=== PATIENT | female | born 1955 | race Caucasian/White ===

== ENCOUNTER 2018-01-14 10:06 | Inpatient (IN) | payer BC ==
--- NOTE | 2018-01-14 10:12 | EDPHY ---
H & P Time Seen by Provider: 01/14/18 10:09 HPI/ROS: CHIEF COMPLAINT: Left hip pain post mechanical fall HISTORY OF PRESENT ILLNESS: 62-year-old female history of type 2 diabetes, arrives via ambulance, not a trauma activation, complaining of acute left hip pain after a mechanical fall. She describes taking a dog for a walk, the dog pulled suddenly causing her to fall onto her left side. Isolated complaints of left hip injury. No head injury. No alcohol or drug use. This was not a syncopal episode. No headache. No nausea or vomiting. No chest pain. No back pain. No abdominal pain. No dyspnea. Last oral intake dinner last night PRIMARY CARE PROVIDER: Uyen Jay NP REVIEW OF SYSTEMS: 10 systems reviewed and negative with the exception of the elements mentioned in the history of present illness PAST MEDICAL/SURGICAL HISTORY: Type 2 diabetes. no anticoagulant use, no relevant medical/surgical history SOCIAL HISTORY: denies alcohol use at time of incident PHYSICAL EXAM 1) GENERAL: Well-developed, well-nourished, alert and oriented. Appears uncomfortable when she is asked to move the left hip. She prefers laying in a right lateral, position Answering questions appropriately. 2) HEAD: Normocephalic, atraumatic 3) HEENT: Pupils equal, round, reactive to light bilaterally. Negative Horners. Nasopharynx, oropharynx, clear. No deformity or angulation of nose. No septal hematoma. No rhinorrhea. No oral trauma. Ears bilaterally with normal tympanic membranes. No hemotympanum. No fluid or blood in the external auditory canal. No raccoon eyes. No Marques sign. Teeth are normally aligned with no gross malocclusion, TMJ bilaterally nontender, facial bones nontender including the zygomatic arch, maxilla mandible. 4) NECK: No cervical collar is on. Posterior cervical spine is nontender, no stepoff, no effusion. Full range of motion which does not elicit any midline cervical spine pain, no posterior midline tenderness, no step-off. 5) LUNGS: Clear to auscultation bilaterally, no wheezes, no rhonchi, no retractions. No obvious signs of trauma. No chest wall pain. No flaring, no grunting. Moving symmetrically. No crepitus. 6) HEART: Regular rate and rhythm, 7) ABDOMEN: No guarding, no rebound, no focal tenderness, no peritoneal signs, no signs of trauma, no ecchymosis 8) MUSCULOSKELETAL: Left lower extremity: Tender to palpation proximal and mid thigh. Soft compartments. Hip and inguinal region nontender. Unable to assess leg length discrepancy this patient's keeping her hip flexed unwilling or unable to extend. Knee nontender. Distal DP PT pulses present and brisk. Otherwise, Moving all extremities, no focal areas of tenderness, no obvious trauma. 9) BACK: No midline vertebral tenderness, no fluctuance, no step-off, no obvious trauma, no visual or palpable abnormality. 10) SKIN: No laceration. No abrasion DIFFERENTIAL DIAGNOSIS: In no particular order including but not limited to fracture, sprain, strain, dislocation Constitutional: Initial Vital Signs Temperature (C) 37.2 C 01/14/18 10:09 O2 Delivery Mode Room Air Allergies/Adverse Reactions: No Known Allergies Allergy (Unverified 01/14/18 10:14) Home Medications: Medication Instructions Recorded Aspirin [Aspirin 81mg (*)] 81 mg PO DAILY 01/14/18 Atorvastatin Calcium [Lipitor 40 40 mg PO DAILY 01/14/18 mg (*)] Cholecalciferol Vit D3 [Vitamin D3 1,000 units PO BID 01/14/18 (*)] Lisinopril [Lisinopril] 10 mg PO DAILY 01/14/18 [place]-3 Fatty Acids [Fish Oil 1000 1,000 mg PO BID 01/14/18 mg (*)] Vitamin B Complex [Vitamin B 1 each PO DAILY 01/14/18 Complex (OTC)] glyBURIDE [Glyburide] 2.5 mg PO DAILY 01/14/18 metFORMIN HCL [Metformin HCl] 1,000 mg PO BID 01/14/18 Medical Decision Making - Diagnostics Imaging Results: Imaging Impressions Chest X-Ray 01/14/18 10:15 Impression: Negative preoperative portable chest. Femur X-Ray 01/14/18 10:15 Impression: 1. Nondisplaced obliquely oriented intertrochanteric proximal left foraminal fracture with subtrochanteric extension. Images reviewed myself ED Course/Re-evaluation: 11:19 a.m.: Re-evaluation, discussed her imaging results showing a nondisplaced intertrochanteric fracture with extension into the subtrochanteric region. She remains NPO since dinner last night. Pain is controlled. Will consult with orthopedics plan on admission. I saw this patient independently based on established practice protocols. Care of patient under supervision of secondary supervising physician Dr Garcia with whom I discussed case. 11:40 a.m.: Consultation with on-call orthopedics Dr. Kvng Gates has reviewed the patient's images. Patient remains NPO since last evening. He requests she remain NPO and he will plan operative repair later today. Admit to hospitalist. 12:08 p.m.: Consultation with hospitalist Lisa, admit to Dr. Moreno - Data Points Laboratory Results: Laboratory Results 01/14/18 10:10 01/14/18 10:10 01/14/18 01/14/18 01/14/18 10:10 10:10 10:10 WBC 5.37 10^3/uL 10^3/uL (3.80-9.50) RBC 4.22 10^6/uL 10^6/uL (4.18-5.33) Hgb 14.2 g/dL g/dL (12.6-16.3) Hct 41.3 % % (38.0-47.0) MCV 97.9 fL fL (81.5-99.8) MCH 33.6 pg pg (27.9-34.1) MCHC 34.4 g/dL g/dL (32.4-36.7) RDW 12.8 % % (11.5-15.2) Plt Count 226 10^3/uL 10^3/uL (150-400) MPV 10.0 fL fL (8.7-11.7) Neut % (Auto) 53.2 % % (39.3-74.2) Lymph % (Auto) 36.1 % % (15.0-45.0) [place] % (Auto) 7.1 % % (4.5-13.0) Eos % (Auto) 2.8 % % (0.6-7.6) Baso % (Auto) 0.4 % % (0.3-1.7) Nucleat RBC Rel Count 0.0 % % (0.0-0.2) Absolute Neuts (auto) 2.86 10^3/uL 10^3/uL (1.70-6.50) Absolute Lymphs (auto) 1.94 10^3/uL 10^3/uL (1.00-3.00) Absolute Monos (auto) 0.38 10^3/uL 10^3/uL (0.30-0.80) Absolute Eos (auto) 0.15 10^3/uL 10^3/uL (0.03-0.40) Absolute Basos (auto) 0.02 10^3/uL 10^3/uL (0.02-0.10) Absolute Nucleated RBC 0.00 10^3/uL 10^3/uL (0-0.01) Immature Gran % 0.4 % % (0.0-1.1) Immature Gran # 0.02 10^3/uL 10^3/uL (0.00-0.10) PT 12.7 SEC SEC (12.0-15.0) INR 0.93 (0.83-1.16) APTT 25.6 SEC SEC (23.0-38.0) Sodium 138 mEq/L mEq/L (135-145) Potassium 5.0 mEq/L mEq/L (3.3-5.0) Chloride 99 mEq/L mEq/L (97-110) Carbon Dioxide 27 mEq/l mEq/l (22-31) Anion Gap 12 mEq/L mEq/L (8-16) BUN 14 mg/dL mg/dL (7-23) Creatinine 0.6 mg/dL mg/dL (0.6-1.0) Estimated GFR > 60 Glucose 197 mg/dL H mg/dL (70-100) Calcium 10.0 mg/dL mg/dL (8.5-10.4) Medications Given: Discontinued Medications Fentanyl (Sublimaze) 50 mcg IVP EDNOW ONE Stop: 01/14/18 10:33 Last Admin: 01/14/18 11:13 Dose: 50 mcg Fentanyl (Sublimaze) 50 mcg IVP EDNOW ONE Stop: 01/14/18 12:27 Last Admin: 01/14/18 12:59 Dose: 50 mcg Departure - Departure Disposition: [facility] Inpatient Acute Clinical Impression: Hip fracture, left Qualifiers: Encounter type: initial encounter Fracture type: closed Qualified Code(s): S72.002A - Fracture of unspecified part of neck of left femur, initial encounter for closed fracture Condition: Fair
[2018-01-14] MEDS ORDERED: fentaNYL 100 MCG/2 ML INJ ONE ×2 (10:31→19:05)
[2018-01-14] MEDS ORDERED: fentaNYL 100 MCG/2 ML INJ IVP ONE ×2 (10:32→12:26)
[2018-01-14 11:28] LABS: PLATELET COUNT 226 10^3/uL (150-400)
[2018-01-14 11:38] LABS: INR 0.93 (0.83-1.16); PROTIME(PATIENT) 12.7 SEC (12.0-15.0)
[2018-01-14] MEDS ORDERED: HYDROmorphONE/DILAUDID 1 MG/ML INJ IVP PRN (13:19)
[2018-01-14] MEDS ORDERED: LACTULOSE 20 GM/30 ML UDCUP PO PRN (13:20)
[2018-01-14] MEDS ORDERED: BISACODYL 10 MG SUPP PR PRN (13:20)
[2018-01-14] MEDS ORDERED: MAGNESIUM HYDROXIDE 30 ML UDCUP PO PRN (13:20)
[2018-01-14] MEDS ORDERED: POLYETHYLENE GLYCOL 3350 17 GM PKT PO PRN (13:20)
[2018-01-14] MEDS ORDERED: D5W 1/2 NS 1,000 ML IV SCH (13:30)
[2018-01-14] MEDS ORDERED: ONDANSETRON DISINTEGRATING 4 MG TAB PO PRN (13:33)
[2018-01-14] MEDS ORDERED: ONDANSETRON 4 MG/2 ML VIAL IVP PRN ×2 (13:33→17:35)
[2018-01-14] MEDS ORDERED: HYDROmorphone HCL 0.5 MG/0.5 ML SYR IVP PRN (14:00)
[2018-01-14] MEDS: HYDROmorphONE/DILAUDID 2 MG TAB PO PRN (14:04)
[2018-01-14] MEDS ORDERED: ceFAZolin 2 GM/DEXTROSE 100 ML IV ONE (14:29)
--- NOTE | 2018-01-14 14:44 | GHP ---
DATE OF ADMISSION: 01/14/2018 REASON FOR CONSULTATION: Left intertrochanteric fracture. HISTORY OF PRESENT ILLNESS: The patient is a 62-year-old female who was walking her dog earlier this morning when the dog got tangled up with her, she fell, hitting the ground sustaining intertrochante zackary fracture. She was brought to the emergency department. X-rays were obtained. I was consulted. She has been admitted to the hospitalist and our plan is for surgical fixation of the fracture later this afternoon. PRIOR MEDICAL HISTORY: Type 2 diabetes. SURGICAL HISTORY: None. MEDICATIONS: 1. Metformin. 2. Glyburide. 3. Vitamin B. 4. Lisinopril. 5. [place]-3. 6. Aspirin 81 mg. 7. Lipitor. 8. Vitamin D3. ALLERGIES: No known drug allergies. SOCIAL HISTORY: She is . [place]. Does not smoke. Occasional alcohol use. REVIEW OF SYSTEMS: No loss of consciousness. No shortness of breath or chest pain. Otherwise, revi ew of systems unremarkable. PHYSICAL EXAM: GENERAL: Healthy-appearing 62-year-old female, she is alert and oriented x3. Answer s questions appropriately. She is in mild distress from the left hip pain. VITAL SIGNS: Blood pres sure is 162/88. Heart rate is 91, respiratory rate 16. Temperature is 36.6, oxygen saturations 97% on room air. HEENT: Normocephalic, atraumatic. Extraocular muscles intact. NECK: Supple. There is no lymphadenopathy. No JVD. CHEST: Clear to auscultation. CARDIOVASCULAR: Regular rate and rh ythm. ABDOMEN: Soft, nontender, nondistended. EXTREMITIES: Left leg is short and externally rotat ed. Thigh compartment is soft. She has 1+ dorsalis pedis, posterior tibial pulses. She does have s ome underlying neuropathy on the plantar aspect of her foot, but it is at her baseline currently. Se nsation on the dorsum of her foot is intact. X-RAYS: Hip, femur taken today in the emergency department are reviewed. They show a nondisplaced, obliquely oriented intertrochanteric fracture. It does extend into the subtrochanteric region. Join t space is well maintained. No significant underlying osteoarthritis. ASSESSMENT: Intertrochanteric fracture left hip. PLAN: We will proceed with a long intramedullary nail fixation later this afternoon. She will be on anticoagulants for 21 days postop. We also talked about the risks of infection. She will be on Anc ef perioperatively. Consent was signed. We will keep her n.p.o. /[id number]/MODL
--- NOTE | 2018-01-14 15:14 | PDMN ---
Medical Necessity Medical necessity: Pt meets inpt criteria per MD order and Musculoskeletal Surgery or Procedure GRG. 62 y/o admitted w/intertrochanteric fracture left hip requiring surgical intervention, intermedullary nail fixation today. Anticipate> 2MN for hip surgery and post-op recovery/care.
[2018-01-14] MEDS ORDERED: PROPOFOL 200 MG/20 ML VIAL ONE (16:34)
[2018-01-14] MEDS ORDERED: BUPIVACAINE 0.5% 30 ML SDV ONE (16:34)
[2018-01-14] MEDS ORDERED: RANITIDINE 50 MG/2 ML VIAL ONE (16:36)
[2018-01-14] MEDS ORDERED: ROCURONIUM 100 MG/10 ML VIAL ONE (16:36)
[2018-01-14] MEDS ORDERED: METOCLOPRAMIDE 10 MG/2 ML VIAL ONE (16:36)
[2018-01-14] MEDS ORDERED: LIDOCAINE 2% 100 MG/5 ML SYR ONE (16:36)
[2018-01-14] MEDS ORDERED: MIDAZOLAM 2 MG/2 ML VIAL ONE (16:40)
--- NOTE | 2018-01-14 16:50 | PDGENHP ---
History and Physical - Chief Complaint Acute hip pain - History of Present Illness Primary care provider: Uyen Jay NP HPI: 62-year-old female presents with acute hip pain located in her left hip, characterized as severe, with associated preceding mechanical fall, secondary to losing her balance while she was walking her dog. She denies any precipitating chest pain dizziness or shortness of breath. She denies any high head trauma. She reports experiencing the pain immediately after she landed on her left hip and the duration was persistent thereafter. The onset of this fall was on the morning of presentation. Her pain was somewhat alleviated by fentanyl received in the emergency department as well as immobilization. Prior to her acute episode, the patient had otherwise been feeling well and had had no complaints. She reports that her exercise tolerance is approximately 2.8 miles per day, and she has not experienced any recent chest pain reduction exercise tolerance. History Information - Allergies/Home Medication List Allergies/Adverse Reactions: No Known Allergies Allergy (Unverified 01/14/18 10:14) Home Medications: Aspirin [Aspirin 81mg (*)] 81 mg PO DAILY 01/14/18 [Last Taken 01/13/18] Atorvastatin Calcium [Lipitor 40 mg (*)] 40 mg PO DAILY 01/14/18 [Last Taken ] Cholecalciferol Vit D3 [Vitamin D3 (*)] 1,000 units PO BID 01/14/18 [Last Taken 01/13/18] Lisinopril [Lisinopril] 10 mg PO DAILY 01/14/18 [Last Taken 01/13/18] [place]-3 Fatty Acids [Fish Oil 1000 mg (*)] 1,000 mg PO BID 01/14/18 [Last Taken 01/13/18] Vitamin B Complex [Vitamin B Complex (OTC)] 1 each PO DAILY 01/14/18 [Last Taken 01/13/18] glyBURIDE [Glyburide] 2.5 mg PO DAILY 01/14/18 [Last Taken 01/13/18] metFORMIN HCL [Metformin HCl] 1,000 mg PO BID 01/14/18 [Last Taken 01/13/18] I have personally reviewed and updated: family history, medical history, social history, surgical history - Past Medical History diabetes type 2, hypertension, hyperlipidemia - Surgical History Additional surgical history: Ankle surgery in 1997 - Family History Additional family history: No family history of venous thromboembolism, father had CVA in his 80s - Social History Smoking Status: Never smoked Alcohol Use: Other (Patient drinks a moderate amount of alcohol on the weekends , approximately 1 bottle per night, she has experienced mild alcohol withdrawal in the past but has not had any alcohol consumption in approximately 5 days) Drug Use: None Additional social history: Independent ADLs comma 2.8 ambulatory miles per day without any chest pain or shortness of breath Review of Systems Review of Systems: ROS: 10pt was reviewed & negative except for what was stated in HPI & below Muscolosketal: Reports: other (Pain left hip, fall) Physical Exam Physical Exam: Temp Pulse Resp BP Pulse Ox 37.3 C 105 H 18 150/84 H 95 01/14/18 16:13 01/14/18 16:13 01/14/18 16:13 01/14/18 16:13 01/14/18 16:13 Constitutional: no apparent distress, appears nourished, not in pain, uncomfortable Eyes: PERRL, anicteric sclera, EOMI Ears, Nose, Mouth, Throat: moist mucous membranes, hearing normal, ears appear normal, no oral mucosal ulcers Cardiovascular: regular rate and rhythym, no murmur, rub, or gallop, No edema Respiratory: no respiratory distress, no rales or rhonchi, clear to auscultation Gastrointestinal: normoactive bowel sounds, soft, non-tender abdomen, no palpable masses Genitourinary: other (Mild bladder fullness but no tenderness) Musculoskeletal: other (Left lower extremity is shortened and externally rotated , flexed at the left knee) Neurologic: No weakness (Motor strength 5/5 left toes, right lower extremity) Psychiatric: interacting appropriately, not anxious, not encephalopathic, thought process linear Lab Data & Imaging Review 01/14/18 10:10 01/14/18 10:10 WBC 5.37 10^3/uL (3.80-9.50) 01/14/18 10:10 RBC 4.22 10^6/uL (4.18-5.33) 01/14/18 10:10 Hgb 14.2 g/dL (12.6-16.3) 01/14/18 10:10 Hct 41.3 % (38.0-47.0) 01/14/18 10:10 MCV 97.9 fL (81.5-99.8) 01/14/18 10:10 MCH 33.6 pg (27.9-34.1) 01/14/18 10:10 MCHC 34.4 g/dL (32.4-36.7) 01/14/18 10:10 RDW 12.8 % (11.5-15.2) 01/14/18 10:10 Plt Count 226 10^3/uL (150-400) 01/14/18 10:10 MPV 10.0 fL (8.7-11.7) 01/14/18 10:10 Neut % (Auto) 53.2 % (39.3-74.2) 01/14/18 10:10 Lymph % (Auto) 36.1 % (15.0-45.0) 01/14/18 10:10 [place] % (Auto) 7.1 % (4.5-13.0) 01/14/18 10:10 Eos % (Auto) 2.8 % (0.6-7.6) 01/14/18 10:10 Baso % (Auto) 0.4 % (0.3-1.7) 01/14/18 10:10 Nucleat RBC Rel Count 0.0 % (0.0-0.2) 01/14/18 10:10 Absolute Neuts (auto) 2.86 10^3/uL (1.70-6.50) 01/14/18 10:10 Absolute Lymphs (auto) 1.94 10^3/uL (1.00-3.00) 01/14/18 10:10 Absolute Monos (auto) 0.38 10^3/uL (0.30-0.80) 01/14/18 10:10 Absolute Eos (auto) 0.15 10^3/uL (0.03-0.40) 01/14/18 10:10 Absolute Basos (auto) 0.02 10^3/uL (0.02-0.10) 01/14/18 10:10 Absolute Nucleated RBC 0.00 10^3/uL (0-0.01) 01/14/18 10:10 Immature Gran % 0.4 % (0.0-1.1) 01/14/18 10:10 Immature Gran # 0.02 10^3/uL (0.00-0.10) 01/14/18 10:10 PT 12.7 SEC (12.0-15.0) 01/14/18 10:10 INR 0.93 (0.83-1.16) 01/14/18 10:10 APTT 25.6 SEC (23.0-38.0) 01/14/18 10:10 Sodium 138 mEq/L (135-145) 01/14/18 10:10 Potassium 5.0 mEq/L (3.3-5.0) 01/14/18 10:10 Chloride 99 mEq/L (97-110) 01/14/18 10:10 Carbon Dioxide 27 mEq/l (22-31) 01/14/18 10:10 Anion Gap 12 mEq/L (8-16) 01/14/18 10:10 BUN 14 mg/dL (7-23) 01/14/18 10:10 Creatinine 0.6 mg/dL (0.6-1.0) 01/14/18 10:10 Estimated GFR > 60 01/14/18 10:10 Glucose 197 mg/dL (70-100) H 01/14/18 10:10 POC Glucose 219 mg/dL (70-100) H 01/14/18 15:55 Calcium 10.0 mg/dL (8.5-10.4) 01/14/18 10:10 Visualized and Interpreted Chest x-ray results: Yes Chest X-Ray results: no infiltrate Visualized and Interpreted EKG results: Yes EKG Interpretation: Positive for: normal sinsus rhythm Assessment & Plan Assessment: 62-year-old female presents with acute mechanical fall and subsequent left hip fracture Plan: 1. Femur fracture. Acute, new problem this provider, further workup indicated. Nondisplaced, intratrochanteric with some subtrochanteric extension -requiring urgent surgical intervention, to OR with Dr. Gates today -RCRI of 0, conferring is 0.5% perioperative cardiovascular risk of morbidity and/or mortality, resulting in a low cardiovascular risk for an intermediate orthopedic risk surgery, recommend proceeding to surgery without additional cardiac risk stratification -her metabolic equivalents are sound comma anticipate the patient will have favorable postoperative recovery -pain control -bowel regimen -incentive spirometer 2. Diabetes mellitus type 2. Controlled, reviewed outside records including 2017 outpatient labs, hemoglobin A1c 6.6% at that time -continue home medications in a.m., hold this evening given NPO status for surgery 3. Hypertension. Acute worsening secondary to pain, reinitiate home medications , monitor Diet. NPO at present, diabetic diet postoperatively Prophylaxis. High risk patient, SCDs presently, will recommend pharmacologic prophylaxis beginning tomorrow assuming no significant blood loss Code. Full Disposition. Anticipated discharge uncertain this time, anticipated stay is greater than 48 hr for reasonable medical necessity including acute femur fracture requiring surgical intervention, a complicated fracture which will likely extend her length of stay. I have discussed patient's presentation with Lisa Florian, hospitalist provider, she has assigned the patient to me for evaluation.
[2018-01-14] MEDS ORDERED: ALBUTEROL 3 ML DEYVIAL IH PRN (17:35)
[2018-01-14] MEDS ORDERED: fentaNYL 100 MCG/2 ML INJ IVP PRN (17:35)
[2018-01-14] MEDS ORDERED: NALOXONE HCL 0.4 MG/ML INJ IVP PRN ×2 (17:35)
[2018-01-14] MEDS ORDERED: MEPERIDINE 25 MG/0.5 ML AMP IVP PRN (17:35)
--- NOTE | 2018-01-14 17:35 | PDANEPAE ---
ANE Past Medical History - Pulmonary History Hx Oxygen in Use at Home: No Hx Sleep Apnea: No Sleep Apnea Screening Result - Last Documented: Positive - Endocrine History Hx Diabetes: Yes ANE Review of Systems Review of Systems: ANE Patient History - Allergies Allergies/Adverse Reactions: No Known Allergies Allergy (Unverified 01/14/18 10:14) - Home Medications Home Medications: Aspirin [Aspirin 81mg (*)] 81 mg PO DAILY 01/14/18 [Last Taken 01/13/18] Atorvastatin Calcium [Lipitor 40 mg (*)] 40 mg PO DAILY 01/14/18 [Last Taken ] Cholecalciferol Vit D3 [Vitamin D3 (*)] 1,000 units PO BID 01/14/18 [Last Taken 01/13/18] Lisinopril [Lisinopril] 10 mg PO DAILY 01/14/18 [Last Taken 01/13/18] [place]-3 Fatty Acids [Fish Oil 1000 mg (*)] 1,000 mg PO BID 01/14/18 [Last Taken 01/13/18] Vitamin B Complex [Vitamin B Complex (OTC)] 1 each PO DAILY 01/14/18 [Last Taken 01/13/18] glyBURIDE [Glyburide] 2.5 mg PO DAILY 01/14/18 [Last Taken 01/13/18] metFORMIN HCL [Metformin HCl] 1,000 mg PO BID 01/14/18 [Last Taken 01/13/18] - NPO status NPO Since - Liquids (Date): 01/14/18 NPO Since - Liquids (Time): 09:00 NPO Since - Solids (Date): 01/13/18 NPO Since - Solids (Time): 18:00 - Smoking Hx Smoking Status: Never smoked - Alcohol Use Alcohol Use: Other (Patient drinks a moderate amount of alcohol on the weekends , approximately 1 bottle per night, she has experienced mild alcohol withdrawal in the past but has not had any alcohol consumption in approximately 5 days) ANE Labs/Vital Signs - Labs Result Diagrams: 01/14/18 10:10 01/14/18 10:10 - Vital Signs Blood Pressure: 150/84 Heart Rate: 105 Respiratory Rate: 18 O2 Sat (%): 95 Height: 170.18 cm Weight: 92.986 kg ANE Physical Exam - Airway Neck exam: decreased ROM Mallampati Score: Class 3 Mouth exam: poor dentition - Pulmonary Pulmonary: no respiratory distress - Cardiovascular Cardiovascular: regular rate and rhythym - ASA Status ASA Status: III ANE Anesthesia Plan Anesthesia Plan: general endotracheal anesthesia
[2018-01-14] MEDS ORDERED: SUGAMMADEX SODIUM 200 MG/2 ML VIAL IVP ONE (18:00)
--- NOTE | 2018-01-14 18:25 | POSTANESTH ---
Post Anesthetic Evaluation Cardiovascular Status: Similar to Pre-Op Cond Respiratory Status: Similar to Pre-op Cond. Level of Consciousness/Mental Status: Mildly Sleepy, Arousable Pain Control: Adequate, Prn Tx Ordered Nausea/Vomiting Control: Adequate, Prn Tx Ordered Complications Possibly Related to Anesthesia: None Noted
--- NOTE | 2018-01-14 18:30 | POSTOPPROG ---
Post Op Note Date of Operation: 01/14/18 Surgeon: Kvng Gates Anesthesiologist: ciara Anesthesia: GET(General Endotracheal) Pre-op Diagnosis: Left intertrochanteric femur fracture Post-op Diagnosis: same Procedure: IMN Left femur Inf/Abcess present in the surg proc area at time of surgery?: No EBL: 100-500 (250 ml) Complications: none
--- NOTE | 2018-01-14 19:20 | GOP ---
DATE OF OPERATION: 01/14/2018 SURGEON: Kvng Gates MD ANESTHESIA: General. ANESTHESIOLOGIST: Dr. Pulido. PREOPERATIVE DIAGNOSIS: Left intertrochanteric femur fracture. POSTOPERATIVE DIAGNOSIS: Left intertrochanteric femur fracture. PROCEDURE PERFORMED: Long intramedullary nail left intertrochanteric fracture. FINDINGS: ESTIMATED BLOOD LOSS: 250 mL. INDICATIONS: The patient is a 62-year-old female, who earlier today was tripped by her dog, landing on her hip, sustained a displaced intertrochanteric fracture. She was admitted to the hospital. Ovi ught to the operating room for fixation of her fracture. DESCRIPTION OF PROCEDURE: After appropriate informed consent was obtained, the patient was taken to the operating room, placed supine on the operating table. A time-out was performed. The patient was identified, the correct site was identified, matched with the radiographs available in the room. Tierra welch received 2 g of Ancef preoperatively. Following induction of general endotracheal tube anesthesia, she was positioned on the fracture table with all bony prominences well padded. The right lower ext remity was placed in a well-padded well leg woo. The left lower extremity was placed in a tractio n boot. We brought in fluoroscopy, gently added traction and a little internal rotation and abductio n. I was able to reduce the fracture. We then prepped the left hip in the usual sterile fashion. U sing our starting wire, we got our starting position on the tip of the greater trochanter. Drilled t hat into the femoral canal and then used our starting reamer to enter into the femoral canal. We nirav aleksandra a ball-tip guidewire all the way down to physeal scar of the knee, confirmed its position with AP and lateral fluoroscopic images. Then using reamers, we reamed up to a size 13.5 With good cortical chatter and then measured that 400 mm in length. Then using our guide, we tapped the nail into plac e, confirmed its position and seated distally. Using the jig, we placed our screw and spiral blade p late into the head and neck. Confirmed its position with AP and lateral fluoroscopic imaging. Then using perfect [place] technique, place 1 distal locking screw from lateral to medial. Final imaging w as obtained showed satisfactory reduction and positioning of the hardware and fracture. The wounds w ere irrigated. The deep layers were closed with 0 Vicryl, superficial layers closed with 2-0 Vicryl. Skin was closed with unique. Sterile dressing was applied. I instilled 30 mL 0.5% Marcaine with epinephrine on the incisions. The patient was awakened from anesthesia, transferred back onto the [facility] bed, taken to recovery room in satisfactory condition. There were no immediate intraoperative complications. COMPLICATIONS: None. DRAINS: None. IMPLANTS USED: Sapheneia 12 x 400 mm TFN nail. /[id number]/MODL
[2018-01-14] MEDS: OMEGA-3 FATTY ACIDS 1,000 MG CAP PO SCH (21:22)
[2018-01-14] MEDS: CHOLECALCIFEROL VIT D3 1,000 UNITS TAB PO SCH (21:22)
[2018-01-14] MEDS: SENNOSIDES/DOCUSATE SODIUM TAB PO SCH (21:22)
[2018-01-14] MEDS: ACETAMINOPHEN 325 MG TAB PO PRN (21:22)
[2018-01-14] MEDS ORDERED: D50W 25 GM/50 ML VIAL IVP PRN (22:56)
[2018-01-15] MEDS: HYDROCODONE/APAP 5/325 TAB PO PRN ×2 (00:28→06:30)
[2018-01-15] MEDS: CYCLOBENZAPRINE 10 MG TAB PO PRN ×2 (03:23→16:23)
[2018-01-15] MEDS: INSULIN LISPRO 100 UNIT/ML SC SCH ×3 (08:20→17:46)
[2018-01-15] MEDS ORDERED: LISINOPRIL 10 MG TAB PO SCH (09:00)
[2018-01-15] MEDS ORDERED: NS 1,000 ML IV ONE (09:25)
--- NOTE | 2018-01-15 09:56 | SOAPPROG ---
SOAP Progress Note Assessment/Plan: Assessment: Herlinda is now POD#1 s/p left femur long TFN. She is doing well with continued pain. She did get light-headed with therapy. Denies any chest pain, SOB. PE: Dressing clean and dry. Pain with rotation of the hip. DF/PF intact. Calf is soft to compression without pain. NV intact LLE Plan: Continue pain medication. Dressing remains intact and should remain clean and dry. Xarelto 10mg x 21 days for DVT prophylaxis. PWB 50% LLE. Plan is for patient to be possibly discharged to rehab facility depending on PT/OT recommendations. Patient will follow up in 10 days for repeat evaluation and repeat radiographs of the left femur. 01/15/18 09:52 Objective: Vital Signs Temp Pulse Resp BP Pulse Ox 37.2 C 89 16 95/60 L 97 01/15/18 07:31 01/15/18 07:31 01/15/18 07:31 01/15/18 08:30 01/15/18 07:31 Laboratory Results 01/15/18 04:34 01/15/18 04:34 01/14/18 01/15/18 01/16/18 05:59 05:59 05:59 Intake Total 2253 Output Total 1350 Balance 903 PT 12.7 SEC (12.0-15.0) 01/14/18 10:10 INR 0.93 (0.83-1.16) 01/14/18 10:10 ICD10 Worksheet Patient Problems: Problems Problem Status Onset Hip fracture, left Acute
[2018-01-15] MEDS: metFORMIN HCL 500 MG TAB PO SCH ×3 (10:00→20:26)
[2018-01-15] MEDS: OMEGA-3 FATTY ACIDS 1,000 MG CAP PO SCH ×2 (10:00→20:26)
[2018-01-15] MEDS: CHOLECALCIFEROL VIT D3 1,000 UNITS TAB PO SCH ×2 (10:00→20:26)
[2018-01-15] MEDS: VITAMIN B COMPLEX 1 EA CAP/TAB PO SCH (10:00)
[2018-01-15] MEDS: ATORVASTATIN CALCIUM 40 MG TAB PO SCH (10:00)
[2018-01-15] MEDS: SENNOSIDES/DOCUSATE SODIUM TAB PO SCH ×2 (10:01→20:26)
[2018-01-15] MEDS: RIVAROXABAN 10 MG TAB PO SCH (10:01)
[2018-01-15] MEDS: glyBURIDE 2.5 MG TAB PO SCH (10:06)
[2018-01-15] MEDS: HYDROmorphONE/DILAUDID 2 MG TAB PO PRN ×3 (10:19→22:20)
--- NOTE | 2018-01-15 11:24 | ASMTCMCOM ---
CM Note CM Note Notes: CM reviewed chart and met with pt for d/c planning. Pt is a 62 y/o femalewho presented to the ED with acute hip pain located in her left hip; she was diagnosed with a femur fracture. Pt has a hx of hypertension and type 2 diabetes. yesterday pt has surgery to repair her fracture. The OT eval is complete and they have recommended SNF Rehab. The pt has not yet been evaluated by PT. Pt would like to go to a rehab facility and shared that [facility] was recommended to her. A referral will be sent to [facility]. Per hospitalist, d/c likely tomorrow. CM to follow. D/C Plan: Anticipate SNF, possibly [facility] Date Signed: 01/15/2018 11:15 AM Electronically Signed By:Rachel Macias
--- NOTE | 2018-01-15 11:26 | ASMTLACE ---
CHELSIE Acuity / Level of Answers: Yes Care: Did the patient have an inpatient admission? Comorbidities - select Answers: Diabetes (uncontrolled or all that apply controlled) Other Notes: Hypertension # of Emergency department Answers: 1-2 visits in the last 6 months Score: 6 Date Signed: 01/15/2018 11:16 AM Electronically Signed By:Rachel Macias
--- NOTE | 2018-01-15 15:08 | ASMTCMCOM ---
CM Note CM Note Notes: PT/OT evals recommending SNF rehab. Referral sent to [facility]; [facility] informed pt's insurance ([employer] is [id number]). Pt would like rehab not to be part of larger SNF. Referrals sent to [facility] in [place], [facility] and [facility]. Awaiting replies. D/C Plan: SNF Rehab Date Signed: 01/15/2018 03:04 PM Electronically Signed By:Rachel Macias
--- NOTE | 2018-01-15 15:50 | HOSPPROG ---
Hospitalist Progress Note Assessment/Plan: Assessment: 62-year-old female presents with acute mechanical fall and subsequent left hip fracture c/b acute orthostatic hypotension Plan: # Orthostatic hypotension. Multifactoral, 2/2 low PO intake and hypovolemia + pain/anaesthesia Rx, SBP 60s this AM w/ near-syncopal symptoms when she attempted to work w/ PT -give 1L NS now -encourage PO intake -hold on PT/OT evals until SBP reliably > 100 -hold home ACEi # Femur fracture. Nondisplaced, intratrochanteric with some subtrochanteric extension -POD #1 w/ pinning by Dr. Gates -50% PWB, f/u as outpt in 10 days -pain control -bowel regimen -incentive spirometer -xarelto 10 x 21 days -counseled the patient regarding assistance w/ transfers, and she is very concerned about her safety at friend's house, she is open to SNF w/ rehab, recommend we get PT/OT evals this afternoon and pursue rehab if indicated, d/w Case Mgmt # Diabetes mellitus type 2. Controlled, A1c 6.6% -continue home medications after breakfast # Hypertension. Hold home ACEi given hypotension Diet. Encourage PO Prophylaxis. High risk patient, xarelto 10 Code. Full Disposition. Anticipated discharge 01/16 pending rehab/safe DC option. Subjective: felt like she was going to pass-out this AM when attempted to stand Objective: Vital Signs Temp Pulse Resp BP Pulse Ox 37.4 C 100 16 132/72 H 90 L 01/15/18 11:24 01/15/18 11:24 01/15/18 11:24 01/15/18 11:24 01/15/18 11:24 Laboratory Results 01/15/18 04:34 01/15/18 04:34 01/14/18 01/15/18 01/16/18 05:59 05:59 05:59 Intake Total 2253 Output Total 1350 400 Balance 903 -400 PT 12.7 SEC (12.0-15.0) 01/14/18 10:10 INR 0.93 (0.83-1.16) 01/14/18 10:10 - Time Spent With Patient Time Spent with Patient: greater than 35 minutes Time Spent with Patient: Greater than 35 minutes spent on this patients care, greater than 50% of time spent counseling, educating, and coordinating care regarding the above mentioned plan. - Pending Discharge Pending Discharge Within 24 Hours: Yes Pending Discharge Date: 01/16/18 Pending Discharge Time: 11:00 - Physical Exam Constitutional: no apparent distress, obese, uncomfortable, No not in pain (mild ) Cardiovascular: regular rate and rhythym, no murmur, rub, or gallop, edema (1+ LLE) Respiratory: no respiratory distress, no rales or rhonchi, clear to auscultation Gastrointestinal: normoactive bowel sounds, soft, non-tender abdomen, no palpable masses, No distension Skin: other (soft-tissue edema L thigh w/ mild tenderness, no erythema/no induration) Neurologic: AAOx3, sensation intact bilaterally, No weakness (motor 5/5 L foot dorsiflexion) Psychiatric: interacting appropriately, not anxious, not encephalopathic, thought process linear ICD10 Worksheet Patient Problems: Problems Problem Status Onset Hip fracture, left Acute
--- NOTE | 2018-01-15 19:47 | CPEKG ---
Test Reason : OPEN Blood Pressure : / mmHG Vent. Rate : 080 BPM Atrial Rate : 081 BPM P-R Int : 174 ms QRS Dur : 092 ms QT Int : 419 ms P-R-T Axes : 069 029 052 degrees QTc Int : 484 ms Sinus rhythm Borderline T wave abnormalities Confirmed by Shoaib Veras ([id number]) on 01/15/2018 7:46:45 PM Referred By: Confirmed By:Shoaib Veras
[2018-01-15] MEDS: ACETAMINOPHEN 325 MG TAB PO PRN (20:26)
[2018-01-16] MEDS: HYDROmorphONE/DILAUDID 2 MG TAB PO PRN ×2 (05:09→20:48)
[2018-01-16] MEDS: CYCLOBENZAPRINE 10 MG TAB PO PRN ×3 (05:09→23:27)
[2018-01-16] MEDS: INSULIN LISPRO 100 UNIT/ML SC SCH ×3 (08:06→18:13)
[2018-01-16] MEDS: OXYCODONE/APAP 5/325 TAB PO PRN ×3 (08:15→23:27)
[2018-01-16] MEDS: SENNOSIDES/DOCUSATE SODIUM TAB PO SCH ×2 (08:26→20:34)
[2018-01-16] MEDS: RIVAROXABAN 10 MG TAB PO SCH (08:26)
[2018-01-16] MEDS: metFORMIN HCL 500 MG TAB PO SCH ×2 (09:40→20:33)
[2018-01-16] MEDS: VITAMIN B COMPLEX 1 EA CAP/TAB PO SCH (09:40)
[2018-01-16] MEDS: OMEGA-3 FATTY ACIDS 1,000 MG CAP PO SCH ×2 (09:40→20:33)
[2018-01-16] MEDS: ATORVASTATIN CALCIUM 40 MG TAB PO SCH (09:40)
[2018-01-16] MEDS: CHOLECALCIFEROL VIT D3 1,000 UNITS TAB PO SCH ×2 (09:40→20:33)
--- NOTE | 2018-01-16 11:02 | HOSPPROG ---
Hospitalist Progress Note Assessment/Plan: 62-year-old female presents with acute mechanical fall and subsequent left hip fracture c/b acute orthostatic hypotension. First encounter, chart reviewed. D/ W RN. Plan: # Orthostatic hypotension. -Multifactoral, 2/2 low PO intake and hypovolemia + pain/anaesthesia Rx, -better today -encourage PO intake -hold home ACEi # Femur fracture. -Nondisplaced, intratrochanteric with some subtrochanteric extension -POD #2 w/ pinning by Dr. Gates -50% PWB, f/u as outpt in 10 days -pain control -bowel regimen -incentive spirometer -xarelto 10 x 21 days -SNF w/ rehab, -recommend we get PT/OT # Diabetes mellitus type 2. -Controlled, A1c 6.6% -continue home medications -refusing SSI # Hypertension. -Hold home ACEi given hypotension Diet. Encourage PO Prophylaxis. High risk patient, xarelto 10 Code. Full Disposition. Anticipated discharge in am to SNF if stable Subjective: Up in chair. Having more pain today. No other issues. Objective: Vital Signs Temp Pulse Resp BP Pulse Ox 36.9 C 122 H 16 140/83 H 96 01/16/18 07:58 01/16/18 09:20 01/16/18 07:58 01/16/18 09:20 01/16/18 09:20 Laboratory Results 01/16/18 04:32 01/15/18 04:34 01/15/18 01/16/18 01/17/18 05:59 05:59 05:59 Intake Total 2253 1350 500 Output Total 1350 1500 650 Balance 903 -150 -150 PT 12.7 SEC (12.0-15.0) 01/14/18 10:10 INR 0.93 (0.83-1.16) 01/14/18 10:10 - Physical Exam Constitutional: appears nourished, uncomfortable, No chronically ill appearing Eyes: PERRL, anicteric sclera, EOMI Ears, Nose, Mouth, Throat: moist mucous membranes, hearing normal, ears appear normal Cardiovascular: No JVD, No tachycardia, No edema Respiratory: no respiratory distress, no rales or rhonchi, reduced air movement Gastrointestinal: normoactive bowel sounds, No tenderness, No ascites Skin: warm, normal color, No mottled Musculoskeletal: joint tenderness, pain with ROM, muscular tenderness, generalized weakness Neurologic: AAOx3 Psychiatric: interacting appropriately, not anxious, not encephalopathic, thought process linear ICD10 Worksheet Patient Problems: Problems Problem Status Onset Hip fracture, left Acute
[2018-01-16] MEDS: glyBURIDE 2.5 MG TAB PO SCH (11:11)
--- NOTE | 2018-01-16 14:21 | SOAPPROG ---
[facility] Progress Note Assessment/Plan: Assessment: Plan: 01/16/18 14:20 POD#2 LT IMN xarelto x 21 days keep incisions covered x 7 days 50% weightbearing x 4-6 weeeks DC rehab Thursday F/U [facility] 2 weeks Subjective: still having pain with walking Objective: dressing c/d/i calf soft compartmentts soft 5/5 df/pf Vital Signs Temp Pulse Resp BP Pulse Ox 36.4 C 107 H 18 164/81 H 100 01/16/18 11:22 01/16/18 11:22 01/16/18 11:22 01/16/18 11:22 01/16/18 11:22 Laboratory Results 01/16/18 04:32 01/15/18 04:34 01/15/18 01/16/18 01/17/18 05:59 05:59 05:59 Intake Total 2253 1350 800 Output Total 1350 1500 800 Balance 903 -150 0 PT 12.7 SEC (12.0-15.0) 01/14/18 10:10 INR 0.93 (0.83-1.16) 01/14/18 10:10 ICD10 Worksheet Patient Problems: Problems Problem Status Onset Hip fracture, left Acute
--- NOTE | 2018-01-16 15:10 | ASMTCMCOM ---
CM Note CM Note Notes: Chart reviewed. Met with patient to review dc plan of care. She is interested in [facility] for her rehab. She is concerned when she might discharge. Discussed that MD will make final decision as to medical clearance, Plan: DC to SNF Date Signed: 01/16/2018 03:09 PM Electronically Signed By:Maddie Hartley RN
[2018-01-17] MEDS: OXYCODONE/APAP 5/325 TAB PO PRN ×2 (05:36→20:48)
[2018-01-17] MEDS: INSULIN LISPRO 100 UNIT/ML SC SCH ×3 (07:47→18:08)
[2018-01-17] MEDS: metFORMIN HCL 500 MG TAB PO SCH ×2 (09:12→20:48)
[2018-01-17] MEDS: CHOLECALCIFEROL VIT D3 1,000 UNITS TAB PO SCH ×2 (09:13→20:48)
[2018-01-17] MEDS: glyBURIDE 2.5 MG TAB PO SCH (09:13)
[2018-01-17] MEDS: OMEGA-3 FATTY ACIDS 1,000 MG CAP PO SCH ×2 (09:13→20:48)
[2018-01-17] MEDS: ATORVASTATIN CALCIUM 40 MG TAB PO SCH (09:13)
[2018-01-17] MEDS: RIVAROXABAN 10 MG TAB PO SCH (09:13)
[2018-01-17] MEDS: VITAMIN B COMPLEX 1 EA CAP/TAB PO SCH (09:13)
[2018-01-17] MEDS: SENNOSIDES/DOCUSATE SODIUM TAB PO SCH ×2 (09:14→20:48)
[2018-01-17] MEDS: ACETAMINOPHEN 325 MG TAB PO PRN ×2 (09:15→14:20)
--- NOTE | 2018-01-17 12:01 | HOSPPROG ---
Hospitalist Progress Note Assessment/Plan: 62-year-old female presents with acute mechanical fall and subsequent left hip fracture c/b acute orthostatic hypotension. Plan: # Orthostatic hypotension. -Multifactoral, 2/2 low PO intake and hypovolemia + pain/anaesthesia Rx, -better today -encourage PO intake -hold home ACEi # Femur fracture. -Nondisplaced, intratrochanteric with some subtrochanteric extension -POD #3 w/ pinning by Dr. Gates -50% PWB, f/u as outpt in 10 days -pain control -bowel regimen -incentive spirometer -xarelto 10 x 21 days -SNF w/ rehab, -recommend we get PT/OT # Diabetes mellitus type 2. -Controlled, A1c 6.6% -continue home medications -refusing SSI # Hypertension. -Hold home ACEi given hypotension Diet. Encourage PO Prophylaxis. High risk patient, xarelto 10 Code. Full Disposition. Anticipated discharge in am to SNF if stable Subjective: Up in chair. Having spasms. No other issues. Objective: Vital Signs Temp Pulse Resp BP Pulse Ox 36.8 C 98 16 118/65 97 01/17/18 07:30 01/17/18 07:30 01/17/18 07:30 01/17/18 07:30 01/17/18 07:30 Laboratory Results 01/16/18 04:32 01/15/18 04:34 01/16/18 01/17/18 01/18/18 05:59 05:59 05:59 Intake Total 1350 3230 500 Output Total 1500 1600 200 Balance -150 1630 300 PT 12.7 SEC (12.0-15.0) 01/14/18 10:10 INR 0.93 (0.83-1.16) 01/14/18 10:10 - Physical Exam Constitutional: no apparent distress, appears nourished, uncomfortable Eyes: PERRL, anicteric sclera, EOMI Ears, Nose, Mouth, Throat: moist mucous membranes, hearing normal, ears appear normal Cardiovascular: No JVD, No edema Respiratory: no respiratory distress, reduced air movement Gastrointestinal: No tenderness, No ascites Skin: warm, normal color Musculoskeletal: pain with ROM, muscular tenderness, abnormal gait, generalized weakness Neurologic: AAOx3 Psychiatric: interacting appropriately, not anxious, not encephalopathic ICD10 Worksheet Patient Problems: Problems Problem Status Onset Hip fracture, left Acute
--- NOTE | 2018-01-17 12:03 | ASMTCMCOM ---
CM Note CM Note Notes: Contacted [facility]-they are waiting for ins auth. Discharge will hopefully happen on Thursday. Date Signed: 01/17/2018 12:03 PM Electronically Signed By:Francisca Martinez LCSW
[2018-01-17] MEDS: CYCLOBENZAPRINE 10 MG TAB PO PRN (14:23)
[2018-01-17] MEDS ORDERED: oxyCODONE IR 5 MG TAB PO PRN (16:28)
[2018-01-18 07:42] VITALS: BP 131/72
[2018-01-18] MEDS: OXYCODONE/APAP 5/325 TAB PO PRN ×2 (09:39→13:57)
[2018-01-18] MEDS: OMEGA-3 FATTY ACIDS 1,000 MG CAP PO SCH (09:59)
[2018-01-18] MEDS: RIVAROXABAN 10 MG TAB PO SCH (09:59)
[2018-01-18] MEDS: ATORVASTATIN CALCIUM 40 MG TAB PO SCH (09:59)
[2018-01-18] MEDS: CHOLECALCIFEROL VIT D3 1,000 UNITS TAB PO SCH (10:00)
[2018-01-18] MEDS: INSULIN LISPRO 100 UNIT/ML SC SCH ×2 (10:00→12:00)
[2018-01-18] MEDS: metFORMIN HCL 500 MG TAB PO SCH (10:00)
[2018-01-18] MEDS: VITAMIN B COMPLEX 1 EA CAP/TAB PO SCH (10:00)
[2018-01-18] MEDS: SENNOSIDES/DOCUSATE SODIUM TAB PO SCH (10:01)
[2018-01-18] MEDS: glyBURIDE 2.5 MG TAB PO SCH (10:02)
[2018-01-18] MEDS: CYCLOBENZAPRINE 10 MG TAB PO PRN (10:08)
[2018-01-18] MEDS ORDERED: NS 1,000 ML IV SCH (11:15)
--- NOTE | 2018-01-18 12:00 | HOSPPROG ---
Hospitalist Progress Note Assessment/Plan: 62-year-old female presents with acute mechanical fall and subsequent left hip fracture c/b acute orthostatic hypotension. Plan: # Orthostatic hypotension. -Multifactoral, 2/2 low PO intake and hypovolemia + pain/anaesthesia Rx, -better today -encourage PO intake -hold home ACEi # Femur fracture. -Nondisplaced, intratrochanteric with some subtrochanteric extension -POD #4 w/ pinning by Dr. Gates -50% PWB, f/u as outpt in 10 days -pain control -bowel regimen -incentive spirometer -xarelto 10 x 21 days -SNF w/ rehab, -recommend we get PT/OT # Diabetes mellitus type 2. -Controlled, A1c 6.6% -continue home medications -refusing SSI # Hypertension. -Hold home ACEi given hypotension Diet. Encourage PO Prophylaxis. High risk patient, xarelto 10 Code. Full Disposition. Anticipated discharge in am to SNF if stable Subjective: Feeling ok. A bit down today. Objective: Vital Signs Temp Pulse Resp BP Pulse Ox 37.2 C 97 15 131/72 H 96 01/18/18 07:41 01/18/18 07:41 01/18/18 07:41 01/18/18 07:41 01/18/18 07:41 Laboratory Results 01/18/18 09:25 01/15/18 04:34 01/17/18 01/18/18 01/19/18 05:59 05:59 05:59 Intake Total 3230 900 400 Output Total 1600 1790 300 Balance 1630 -890 100 PT 12.7 SEC (12.0-15.0) 01/14/18 10:10 INR 0.93 (0.83-1.16) 01/14/18 10:10 - Physical Exam Constitutional: appears nourished, uncomfortable Eyes: PERRL, anicteric sclera Ears, Nose, Mouth, Throat: moist mucous membranes, hearing normal Cardiovascular: No JVD, No edema Respiratory: no respiratory distress, reduced air movement Gastrointestinal: No tenderness, No ascites Skin: warm, normal color Musculoskeletal: pain with ROM, muscular tenderness, abnormal gait, generalized weakness Neurologic: AAOx3 Psychiatric: not anxious, not encephalopathic ICD10 Worksheet Patient Problems: Problems Problem Status Onset Hip fracture, left Acute
--- NOTE | 2018-01-18 12:09 | PDIAF ---
- Diagnosis Diagnosis: hip fracture Code Status: Full Code - Medication Management Discharge Medications: Medications to Continue on Transfer Atorvastatin Calcium [Lipitor 40 mg (*)] 40 mg PO DAILY 01/14/18 [Last Taken ] Cholecalciferol Vit D3 [Vitamin D3 (*)] 1,000 units PO BID 01/14/18 [Last Taken 01/13/18] Lizella-3 Fatty Acids [Fish Oil 1000 mg (*)] 1,000 mg PO BID 01/14/18 [Last Taken 01/13/18] Vitamin B Complex [Vitamin B Complex (OTC)] 1 each PO DAILY 01/14/18 [Last Taken 01/13/18] glyBURIDE [Glyburide] 2.5 mg PO DAILY 01/14/18 [Last Taken 01/13/18] metFORMIN HCL [Metformin HCl] 1,000 mg PO BID 01/14/18 [Last Taken 01/13/18] Acetaminophen [Tylenol 325mg (*)] 650 mg PO Q4HRS PRN tab 01/18/18 [Last Taken Unknown] Cyclobenzaprine [Flexeril 10 MG (*)] 10 mg PO TID PRN tab 01/18/18 [Last Taken Unknown] HYDROmorphone HCL [Dilaudid 2 mg (*)] 2 mg PO Q4HRS PRN tab 01/18/18 [Last Taken Unknown] Hydrocodone/APAP 5/325 [[place] 5/325 (*)] 1 - 2 tab PO Q3HRS PRN tab 01/18/18 [ Last Taken Unknown] Polyethylene Glycol 3350 [Miralax 17 gm (*)] 17 gm PO DAILY PRN pkt 01/18/18 [ Last Taken Unknown] Rivaroxaban [Xarelto 10mg (*)] 10 mg PO DAILY tab 01/18/18 [Last Taken Unknown] Sennosides/Docusate Sodium [Senokot-S] 1 - 2 tab PO BID tab 01/18/18 [Last Taken Unknown] oxyCODONE IR [Oxycodone Ir (*)] 5 - 10 mg PO Q4 PRN tab 01/18/18 [Last Taken Unknown] oxyCODONE/APAP 5/325 [Percocet 5/325 (*)] 1 - 2 tab PO Q3HRS PRN tab 01/18/18 [ Last Taken Unknown] Discharge Medications: Refer to the Discharge Home Medication list for PRN reason. PICC Care - Routine: N/A - Orders Services needed: Registered Nurse, Physical Therapy, Occupational Therapy Diet Recommendation: no restrictions on diet Additional Instructions: Follow-up with PCP for PNE vaccine - Labs/Radiology HCT/HGB Date: 01/19/18 - Follow Up Care Current Providers and Referrals: Patient,NotPresent [Unknown] - As per Instructions
--- NOTE | 2018-01-18 12:18 | ASMTDCNOTE ---
Case Management Discharge Discharge Order Complete? Answers: Yes Patient to Obtain Answers: Other Notes: [facility] Medications Transportation Arranged Answers: Other Notes: [facility] Transport will Pick (Date 01/18/2018 02:00 PM & Time) Faxed Final Orders Answers: Yes Discharge Comments Notes: Patient discharged to [facility]. Orders sent and received by [facility]. She also set up transport. FLASH July to call report. Date Signed: 01/18/2018 12:17 PM Electronically Signed By:Mary Heard RN
--- NOTE | 2018-01-18 12:33 | GDS ---
DISCHARGE DIAGNOSES: 1. Orthostatic hypotension. 2. Femur fracture. 3. Diabetes mellitus type 2. 4. Hypertension. CONSULTATIONS: Orthopedics. STUDIES AND PROCEDURES DONE: Nailing of the left femur fracture. PHYSICAL EXAMINATION: GENERAL: The patient is alert. VITAL SIGNS: Afebrile at 37.2, pulse is 97, respiratory rate 15, blood pressure is 131/72, she is saturating 96% on 2. I have seen and evaluated the patient on the day of discharge. HOSPITAL COURSE: The patient is a 62-year-old female who presented to the emergency room after suffe ring a mechanical fall. She was evaluated and diagnosed with: 1. Left femur fracture. During this hospitalization, she received nailing per Dr. Gates. She is tolerating this procedure well. She will continue on Xarelto 10 mg for a total of 21 days. She rufino l be discharged to a [facility] facility. 2. Orthostatic hypotension. This is multifactorial. The patient's lisinopril has been held during this hospitalization and not re-initiated. She will follow with her primary care physician after rec overy. 3. Diabetes mellitus type 2. Hemoglobin A1c is 6.6. Continue her previously prescribed home medica tions. 4. Acute blood loss anemia. The patient's hemoglobin is 8.6 today prior to disposition. She will h ave her hemoglobin and hematocrit evaluated on 01/19/2018. DISPOSITION: She will be discharged to [facility] facility for further rehabilitation and manag ement. DISCHARGE MEDICATIONS: Please refer to the EMR form. I have discontinued the patient's previously p rescribed aspirin, as well as lisinopril. FOLLOWUP: Follow up will be with her primary care physician, as well as Dr. Gates. I spent greater than 35 minutes in the care, coordination, and management of this patient's dispositi on. /[id number]/MODL
--- NOTE | 2018-01-19 10:01 | ASDISCHSUM ---
Discharge Information Plan Status: Medically Cleared to Leave: Discharge Date:01/18/2018 03:06 PM CM D/C Disposition: ADT D/C Disposition:Retirement Facility Projected Discharge Date:01/16/2018 11:00 AM Transportation at D/C: Discharge Delay Reason: Follow-Up Date:01/16/2018 11:00 AM Discharge Slot: Final Diagnosis: Placement Information Referral Type:*Halfway/SNF Referral ID:[id number] Provider Name:[facility] Address 1:[address] Address 2: City:[place] Selection Factors: State:[place] Patient Contact Information Contact Name:MILIND Relationship: Address: Work Phone: City: [facility] Phone: [facility] Code: Email: Financial Information Financial Class:BCOP Primary Plan Desc: OUT OF STATE [facility] Primary Plan Number:[id number] Secondary Plan Desc: Secondary Plan Number: Assessment Information [facility] CM Progress Note CM Note CM Note Notes: CM reviewed chart and met with pt for d/c planning. Pt is a 62 y/o femalewho presented to the ED with acute hip pain located in her left hip; she was diagnosed with a femur fracture. Pt has a hx of hypertension and type 2 diabetes. yesterday pt has surgery to repair her fracture. The OT eval is complete and they have recommended SNF Rehab. The pt has not yet been evaluated by PT. Pt would like to go to a rehab facility and shared that [facility] was recommended to her. A referral will be sent to [facility]. Per hospitalist, d/c likely tomorrow. CM to follow. D/C Plan: Anticipate SNF, possibly [facility] Date Signed: 01/15/2018 11:15 AM Electronically Signed By:Rachel Macias LACE CHELSIE Acuity / Level of Answers: Yes Care: Did the patient have an inpatient admission? Comorbidities - select Answers: Diabetes (uncontrolled or all that apply controlled) Other Notes: Hypertension # of Emergency department Answers: 1-2 visits in the last 6 months Score: 6 Date Signed: 01/15/2018 11:16 AM Electronically Signed By:Rachel Macias [facility] [place] Progress Note CM Note CM Note Notes: PT/OT evals recommending SNF rehab. Referral sent to [facility]; [facility] informed pt's insurance ([employer] is [id number]). Pt would like rehab not to be part of larger SNF. Referrals sent to [facility] and [facility]. Awaiting replies. D/C Plan: SNF Rehab Date Signed: 01/15/2018 03:04 PM Electronically Signed By:Rachel Macias [facility] CM Progress Note CM Note CM Note Notes: Chart reviewed. Met with patient to review dc plan of care. She is interested in [facility] for her rehab. She is concerned when she might discharge. Discussed that MD will make final decision as to medical clearance, Plan: DC to SNF Date Signed: 01/16/2018 03:09 PM Electronically Signed By:Maddie Hartley RN [facility] CM Progress Note CM Note CM Note Notes: Contacted [facility]-they are waiting for ins auth. Discharge will hopefully happen on Thursday. Date Signed: 01/17/2018 12:03 PM Electronically Signed By:Francisca Martinez LCSW Case Management Discharge Plan Note Case Management Discharge Discharge Order Complete? Answers: Yes Patient to Obtain Answers: Other Notes: [facility] Medications Transportation Arranged Answers: Other Notes: [facility] Transport will Pick (Date 01/18/2018 02:00 PM & Time) Faxed Final Orders Answers: Yes Discharge Comments Notes: Patient discharged to [facility]. Orders sent and received by [facility]. She also set up transport. FLASH July to call report. Date Signed: 01/18/2018 12:17 PM Electronically Signed By:Mary Heard RN Intervention Information Intervention Type:*Incorrect Registration Date of Service:01/14/2018 02:41 PM Patient Type:Inpatient Staff Member:FLASH Seth Patricia Hours: Discipline: Severity: Comment:
--- NOTE | 2018-01-19 14:18 | PDIAF ---
- Diagnosis Diagnosis: hip fracture Code Status: Full Code - Medication Management Discharge Medications: Medications to Continue on Transfer Atorvastatin Calcium [Lipitor 40 mg (*)] 40 mg PO DAILY 01/14/18 [Last Taken ] Cholecalciferol Vit D3 [Vitamin D3 (*)] 1,000 units PO BID 01/14/18 [Last Taken 01/13/18] [place]-3 Fatty Acids [Fish Oil 1000 mg (*)] 1,000 mg PO BID 01/14/18 [Last Taken 01/13/18] Vitamin B Complex [Vitamin B Complex (OTC)] 1 each PO DAILY 01/14/18 [Last Taken 01/13/18] glyBURIDE [Glyburide] 2.5 mg PO DAILY 01/14/18 [Last Taken 01/13/18] metFORMIN HCL [Metformin HCl] 1,000 mg PO BID 01/14/18 [Last Taken 01/13/18] Acetaminophen [Tylenol 325mg (*)] 650 mg PO Q4HRS PRN tab 01/18/18 [Last Taken Unknown] Cyclobenzaprine [Flexeril 10 MG (*)] 10 mg PO TID PRN tab 01/18/18 [Last Taken Unknown] Polyethylene Glycol 3350 [Miralax 17 gm (*)] 17 gm PO DAILY PRN pkt 01/18/18 [ Last Taken Unknown] Rivaroxaban [Xarelto 10mg (*)] 10 mg PO DAILY tab 01/18/18 [Last Taken Unknown] Sennosides/Docusate Sodium [Senokot-S] 1 - 2 tab PO BID tab 01/18/18 [Last Taken Unknown] oxyCODONE IR [Oxycodone Ir (*)] 5 - 10 mg PO Q4 PRN tab 01/18/18 [Last Taken Unknown] oxyCODONE/APAP 5/325 [Percocet 5/325 (*)] 1 - 2 tab PO Q3HRS PRN tab 01/18/18 [ Last Taken Unknown] Discharge Medications: Refer to the Discharge Home Medication list for PRN reason. PICC Care - Routine: N/A - Orders Services needed: Registered Nurse, Physical Therapy, Occupational Therapy Diet Recommendation: no restrictions on diet Additional Instructions: Follow-up with PCP for PNE vaccine. Partial Weight Bearing 50% on L. Lower Extremity - Labs/Radiology HCT/HGB Date: 01/19/18 - Follow Up Care Current Providers and Referrals: Kvng Gates MD [Medical Doctor] - Patient,NotPresent [Unknown] - As per Instructions
== END 2018-01-18 15:06 | DRG 481 ==
LOC: EDUNIT# → F3N 13:04 → OBSVTOIN 13:20
PROVIDERS: ADMIT Internal Medicine; ATTEND Internal Medicine
PROC: 0QS704Z Reposition Left Upper Femur with Internal Fixation Device, Open Approach (ICD-10-PCS; principal; 2018-01-14 16:45)
DX: S72.145A Nondisplaced intertrochanteric fracture of left femur, initial encounter for closed fracture (principal); D62 Acute posthemorrhagic anemia; I95.1 Orthostatic hypotension; I10 Essential (primary) hypertension; E11.9 Type 2 diabetes mellitus without complications; W18.39XA Other fall on same level, initial encounter; Y93.K1 Activity, walking an animal; Z79.84 Long term (current) use of oral hypoglycemic drugs
CPT/HCPCS: 96374; 97110-GP; 97116-GP; 97162-GP; 97165-GO; 97530-GO; 97530-GP; 97535-GO; C1713; J0690; J1170; J1815; J2001; J2250; J2704; J2765; J2780; J3010